=== PATIENT | female | born 1955 | race American Indian/Alaskan Native ===

== ENCOUNTER 2020-09-18 14:17 | Emergency (ER) | payer MEDICARE ==
--- NOTE | 2020-09-18 16:14 | Event Note ---
ED Screening Note ED Screening Note: LLE edema and pain for a week never had before no recent travel, recent surgery hx of DM, HTN, HLD pitting edema to the lower leg in the region of the ankle and dorsal foot This initial assessment/diagnostic orders/clinical plan/treatment(s) is/are subject to change based on patients health status, clinical progression and re- assessment by fellow clinical providers in the ED. Further treatment and workup at subsequent clinical providers discretion. Patient/guardian urged not to elope from the ED as their condition may be serious if not clinically assessed and managed. Initial orders include: labs, US
[2020-09-18 16:50] LABS: Basophils # (Auto) 0.1 K/mm3 (0.0-0.1); Basophils % (Auto) 0.7 % (0.0-1.8); Eosinophils # (Auto) 0.1 K/mm3 (0.0-0.4); Eosinophils % (Auto) 1.4 % (0.0-4.3); Hematocrit 39.7 % (30.3-42.9); Hemoglobin 13.1 gm/dl (10.1-14.3); Lymphocytes # (Auto) 2.9 K/mm3 (1.2-5.4); Lymphocytes % (Auto) 28.8 % (13.4-35.0); Mean Corpuscular HGB Conc 33 % (30-34); Mean Corpuscular Volume 87 fl (79-97); Monocytes # (Auto) 0.6 K/mm3 (0.0-0.8); Monocytes % (Auto) 5.7 % (0.0-7.3); Platelet Count 306 K/mm3 (140-440); Red Blood Count 4.54 M/mm3 (3.65-5.03); Red Cell Distribution Width 16.2 % (13.2-15.2)
[2020-09-18 17:09] LABS: Alanine Aminotransferase 57 units/L (7-56); Albumin 4.2 g/dL (3.9-5); BUN/Creatinine Ratio 16; Blood Urea Nitrogen 14 mg/dL (7-17); Calcium 10.5 mg/dL (8.4-10.2); Hemolysis Index 11
--- NOTE | 2020-09-18 19:06 | Vascular Lab Report ---
DUPLEX DOPPLER LOWER EXTREMITY VEINS, LEFT INDICATION / CLINICAL INFORMATION: Left lower extremity edema. TECHNIQUE: Duplex doppler imaging was performed through the veins of the left lower extremity using venous compr ession and other maneuvers. COMPARISON: None available. FINDINGS: LEFT COMMON FEMORAL VEIN: Negative. LEFT FEMORAL VEIN: Negative. LEFT POPLITEAL VEIN: Negative. LEFT CALF VEINS: Negative. ADDITIONAL FINDINGS: No abnormal mass or fluid collection is seen IMPRESSION: No sonographic evidence for DVT in the left lower extremity. Signer Name: Deyvi Brown MD Signed: 09/18/2020 7:01 PM Workstation Name: [id number]
--- NOTE | 2020-09-18 21:12 | Emergency Department Report ---
ED Lower Extremity HPI - General Chief Complaint: Extremity Injury, Lower Stated Complaint: SWOLLEN (L) FOOT AND LEG Time Seen by Provider: 09/18/20 16:11 Source: patient Mode of arrival: Wheelchair Limitations: No Limitations - History of Present Illness Initial Comments: Chief complaint: My leg hurts. HPI: This is a 64-year-old female with history of gout, hypertension, thyroid disease who presents with left foot pain and swelling since Saturday morning. No trauma. No recent travel. No history of DVT. She denies chest pain shortness of breath. Denies fever. She has had a gout flare in her left whole. She has never had gout involving her entire foot. 12/18 pain. Tender palpation. Worse with ambulation. Patient receives primary care at [facility] Complaint: other (Left foot pain swelling for the past 5 days since Saturday) -: Gradual Injury: Foot: Left Place: home Severity: severe Severity scale (0 -10): 10 Improves With: nothing Worsens With: weight bearing, palpation Context: other Associated Symptoms: swelling - Related Data Previous Rx's Medication Instructions Recorded Last Taken Type Naproxen 500 mg PO BID 10 Days #20 tablet 09/18/20 Unknown Rx oxyCODONE /ACETAMINOPHEN [Percocet 1 tab PO Q6HR PRN #15 tablet 09/18/20 Unknown Rx 5/325] Allergies Allergy/AdvReac Type Severity Reaction Status Date / Time No Known Allergies Allergy Unverified 09/18/20 15:44 ED Review of Systems ROS: Stated complaint: SWOLLEN (L) FOOT AND LEG Other details as noted in HPI Comment: All other systems reviewed and negative Constitutional: denies: fever, malaise Respiratory: denies: cough, shortness of breath Cardiovascular: denies: chest pain Gastrointestinal: denies: abdominal pain, nausea, vomiting ED Past Medical Hx - Past Medical History Previous Medical History?: Yes Hx Hypertension: Yes Additional medical history: THYROID - Surgical History Past Surgical History?: Yes Additional Surgical History: HYSTO - Social History Smoking Status: Never Smoker Substance Use Type: None - Medications Home Medications: Home Medications Medication Instructions Recorded Confirmed Last Taken Type Naproxen 500 mg PO BID 10 Days #20 tablet 09/18/20 Unknown Rx oxyCODONE /ACETAMINOPHEN [Percocet 1 tab PO Q6HR PRN #15 tablet 09/18/20 Unknown Rx 5/325] ED Physical Exam - General Limitations: No Limitations General appearance: alert, in no apparent distress - Head Head exam: Present: atraumatic, normocephalic - Eye Eye exam: Present: normal appearance - ENT ENT exam: Present: mucous membranes moist - Neck Neck exam: Present: normal inspection, full ROM - Respiratory Respiratory exam: Present: normal lung sounds bilaterally. Absent: respiratory distress, wheezes, rales, stridor - Cardiovascular Cardiovascular Exam: Present: regular rate, normal rhythm, normal heart sounds. Absent: systolic murmur, diastolic murmur, rubs, gallop - GI/Abdominal GI/Abdominal exam: Present: soft, normal bowel sounds. Absent: distended, tenderness, guarding, rebound - Extremities Exam Extremities exam: Present: normal inspection, other (Right foot normal size no edema 2+ DP pulse intact, left foot edematous tender slightly hyperpigmented in color, 2+ DP pulse intact cap refill brisk) - Neurological Exam Neurological exam: Present: alert, oriented X3 - Psychiatric Psychiatric exam: Present: normal affect, normal mood - Skin Skin exam: Present: warm, dry, intact, normal color. Absent: rash ED Course Vital Signs 09/18/20 15:46 Temperature 98.5 F Pulse Rate 87 Respiratory 18 Rate Blood Pressure 199/120 O2 Sat by Pulse 96 Oximetry ED Lower Extremity MDM - Lab Data Result diagrams: 09/18/20 16:23 09/18/20 16:23 Laboratory Results - last 24 hr 09/18/20 09/18/20 16:23 16:23 WBC 10.0 RBC 4.54 Hgb 13.1 Hct 39.7 MCV 87 MCH 29 MCHC 33 RDW 16.2 H Plt Count 306 Lymph % (Auto) 28.8 [place] % (Auto) 5.7 Eos % (Auto) 1.4 Baso % (Auto) 0.7 Lymph # (Auto) 2.9 [place] # (Auto) 0.6 Eos # (Auto) 0.1 Baso # (Auto) 0.1 Seg Neutrophils % 63.4 Seg Neutrophils # 6.3 Sodium 141 Potassium 4.4 Chloride 101.1 Carbon Dioxide 29 Anion Gap 15 BUN 14 Creatinine 0.9 Estimated GFR > 60 BUN/Creatinine Ratio 16 Glucose 101 H Calcium 10.5 H Total Bilirubin 0.30 AST 46 H ALT 57 H Alkaline Phosphatase 161 H NT-Pro-B Natriuret Pep 204.9 Total Protein 7.3 Albumin 4.2 Albumin/Globulin Ratio 1.4 - Radiology Data Radiology results: report reviewed [facility] [address] [place] [address] Vascular Lab Report Signed Patient: GORGE HUTCHISON MR#: [id number] : 1955 Acct:[id number] Age/Sex: 64 / F ADM Date: 09/18/20 Loc: ED Attending Dr: Ordering Physician: JAZZ CROTÉS Date of Service: 09/18/20 Procedure(s): VL venous duplex LE LT Accession Number(s): [id number] cc: JAZZ CORTÉS DUPLEX DOPPLER LOWER EXTREMITY VEINS, LEFT INDICATION / CLINICAL INFORMATION: Left lower extremity edema. TECHNIQUE: Duplex doppler imaging was performed through the veins of the left lower extremity using venous compression and other maneuvers. COMPARISON: None available. FINDINGS: LEFT COMMON FEMORAL VEIN: Negative. LEFT FEMORAL VEIN: Negative. LEFT POPLITEAL VEIN: Negative. LEFT CALF VEINS: Negative. ADDITIONAL FINDINGS: No abnormal mass or fluid collection is seen IMPRESSION: No sonographic evidence for DVT in the left lower extremity. Signer Name: Deyvi Brown MD Signed: 09/18/2020 7:01 PM Workstation Name: [id number] Transcribed By: RT Dictated By: Deyvi Brown MD Electronically Authenticated By: Deyvi Brown MD Signed Date/Time: 09/18/201900 DD/ 00 TD/TT: - Medical Decision Making Left foot pain edema spontaneous onset: Clinical impression pseudogout, DVT ruled out with duplex ultrasound. No history of trauma. Pedal pulses intact. Pain control NSAID therapy initiated in the emergency department with Percocet and ibuprofen. CBC chemistry remarkable for slightly elevated AST ALT suspect fatty liver dise ase and patient with BMI 40. Patient prescribed Percocet, naproxen twice daily. Referred to [facility]. - Differential Diagnosis Cellulitis, DVT, peripheral artery occlusive disease, fracture Critical care attestation.: If time is entered above; I have spent that time in minutes in the direct care of this critically ill patient, excluding procedure time. ED Disposition Clinical Impression: Pseudogout Disposition: - TO HOME OR SELFCARE Is pt being admited?: No Does the pt Need Aspirin: No Condition: Stable Instructions: Calcium Pyrophosphate Deposition Prescriptions: Naproxen 500 mg PO BID 10 Days #20 tablet oxyCODONE /ACETAMINOPHEN [Percocet 5/325] 1 tab PO Q6HR PRN #15 tablet PRN Reason: Pain Referrals: VIVEK COLEY DPM [Staff Physician] - 3-5 Days
[2020-09-18] MEDS ORDERED: oxyCODONE /ACETAMINOPHEN 5-325MG TAB PO ONE (21:17)
[2020-09-18] MEDS ORDERED: IBUPROFEN 800 MG TAB PO ONE (21:17)
[2020-09-18 21:50] VITALS: BP 138/77
== END 2020-09-18 21:49 | disposition home or self-care (01) ==
LOC: ED 14:17
DX: M11.20 Other chondrocalcinosis, unspecified site (principal); I10 Essential (primary) hypertension; Z79.899 Other long term (current) drug therapy; Z90.710 Acquired absence of both cervix and uterus
CPT/HCPCS: 36415; 80053; 83880; 85025